=== PATIENT | female | born 1945 | race Caucasian/White ===

== ENCOUNTER 2024-01-17 09:48 | Observation (INO) ==
[~2024-01-17 09:48] MED LIST: Metoclopramide 5 MG/ML VIAL (10 mg) IV PRN; NS 0.45% 1000 ml BAG 1,000 ML IV SCH; Naloxone 0.4 mg VIAL 0.4 mg/ml 1 ml VIAL IV PRN; Ondansetron 4 mg VIAL 2 MG/ML 2 ml VIAL IV PRN; fentaNYL 100 mcg/2 ml 50 MCG/ML VIAL IV PRN
[2024-01-17] MEDS ORDERED: ceFAZolin 2 GM PREMIX 2 GM/50 ML BAG ONE (10:06)
[2024-01-17 10:29] LABS: Rapid COVID-19 Molecular Undetected (Undetected)
[2024-01-17] MEDS ORDERED: Midazolam 2 mg/2 ml VIAL 1 mg/ml 2 ml VIAL (2 mg) ONE (12:13)
[2024-01-17] MEDS ORDERED: ROPIVACAINE 5 MG/ML 30 ML BTL (0.5%) ONE (12:21)
[2024-01-17] MEDS ORDERED: Magnesium Hydroxide LIQ 30 ML UDC PO PRN (13:46)
[2024-01-17] MEDS ORDERED: Morphine 2 MG/ML SYRINGE IV PRN (13:46)
[2024-01-17] MEDS ORDERED: Ondansetron ODT 4 mg TAB 4 MG TAB PO PRN (13:46)
[2024-01-17] MEDS ORDERED: Lactulose 30 ml UDC PO PRN (13:46)
[2024-01-17] MEDS ORDERED: Calcium Carb (TUMS) 500 mg CHEW TAB PO PRN (13:46)
[2024-01-17] MEDS: Buffered Lidocaine 1% SYRIN 1 ml INTRADERM ONE (15:52)
[2024-01-17] MEDS: Acetaminophen IV 1 GM/100ML 1,000 MG/100 ML BAG IV ONE (15:52)
[2024-01-17] MEDS: Lactated Ringers 1000 ml BAG 1,000 ML IV SCH ×2 (15:53→16:18)
[2024-01-17] MEDS: ceFAZolin 2 GM PREMIX 2 GM/50 ML BAG IV SCH ×2 (16:19→20:33)
[2024-01-17] MEDS: Ondansetron 4 mg VIAL 2 MG/ML 2 ml VIAL IV PRN (18:42)
[2024-01-17] MEDS: Magnesium Hydroxide LIQ 30 ML UDC PO SCH (21:22)
[2024-01-18 06:39] LABS: Hematocrit 29.7 % (35-45); Hemoglobin 10.2 g/dL (11.5-14.3); Mean Platelet Volume 7.7 fL (7.5-11.2); Platelet Count 162 10^3/uL (150-450)
[2024-01-18 07:34] LABS: Calcium 8.3 mg/dL (8.6-10.3); Creatinine, Serum 1.17 mg/dL (0.51-0.95); Potassium 4.6 mmol/L (3.5-5.0); eGFR CKD-EPI 47.8 (>60)
[2024-01-18] MEDS: Vitamin THERAPEUTIC TAB PO SCH (12:28)
== END 2024-01-18 16:08 | disposition home or self-care (01) ==
LOC: SSU 09:48 → OR 09:48
PROVIDERS: ADMIT Orthopaedic Surgery Adult Reconstructive Orthopaedic Surgery; ATTEND Orthopaedic Surgery Adult Reconstructive Orthopaedic Surgery